=== PATIENT | male | born 1950 | race African-American/Black ===

== ENCOUNTER 2022-11-27 14:11 | Emergency (ER) | payer OTHER ==
[~2022-11-27] VITALS: Ht 170.2 cm; Wt 89.0 kg
[2022-11-27 14:27] VITALS: BP 157/97
[2022-11-27] MEDS ORDERED: HYDROCODONE/ACETAMINOPHEN 5/325MG TABLET PO ONE ×2 (15:15→16:30)
[2022-11-27] MEDS ORDERED: IBUP-2029 MT (16:24)
[2022-11-27] MEDS ORDERED: IBUPROFEN 600MG TABLET PO NR (16:30)
== END 2022-11-27 17:21 | disposition home or self-care (01) ==
LOC: ER 15:57
DX: S82.831A Other fracture of upper and lower end of right fibula, initial encounter for closed fracture (principal); X58.XXXA Exposure to other specified factors, initial encounter; Y93.89 Activity, other specified; Y92.89 Other specified places as the place of occurrence of the external cause; Y99.8 Other external cause status
CPT/HCPCS: 29515; 73610; 99284; Z7610